=== PATIENT | female | born 1960 | race Two or more races ===

== ENCOUNTER 2024-03-03 14:09 | Emergency (ER) | payer MEDICAID, OTHER ==
[~2024-03-03] VITALS: Ht 152.4 cm; Wt 83.6 kg
[2024-03-03] MEDS ORDERED: HYDR-3682 PO (15:30)
[2024-03-03] MEDS ORDERED: TRAZ-181 PO (15:30)
[2024-03-03 16:01] VITALS: BP 110/80; PULSE 84; RESP 16; TEMP 97.8; O2SAT 97
== END 2024-03-03 16:06 | disposition home or self-care (01) ==
LOC: ER 14:21
DX: F43.22 Adjustment disorder with anxiety (principal)

== ENCOUNTER 2024-03-17 18:30 | Emergency (ER) | payer MEDICAID ==
[~2024-03-17] VITALS: Ht 152.4 cm; Wt 87.1 kg
[~2024-03-17 18:30] MED LIST: HYDR-3682 PO; TRAZ-181 PO
[2024-03-17] MEDS: LORazepam 0.5 MG TAB PO ONE (19:00)
[2024-03-17] MEDS ORDERED: ESCI1TAB36 PO (19:12)
[2024-03-17 20:07] VITALS: BP 144/89; PULSE 74; RESP 14; TEMP 98.3
[2024-03-17] MEDS: ACETAMINOPHEN 325 MG TAB PO ONE (20:32)
[2024-03-17 20:40] VITALS: O2SAT 98
== END 2024-03-17 20:49 | disposition home or self-care (01) ==
LOC: ER 18:30
DX: F41.1 Generalized anxiety disorder (principal); G44.309 Post-traumatic headache, unspecified, not intractable

== ENCOUNTER 2024-03-31 10:19 | Emergency (ER) | payer MEDICAID ==
[~2024-03-31] VITALS: Ht 152.4 cm; Wt 85.0 kg
[~2024-03-31 10:19] MED LIST changes: +ESCI1TAB36 PO
--- NOTE | 2024-03-31 10:37 | ED.PDOC ---
Eye-HPI HPI Comments HPI: Poor Historian. 64-year-old female presents to emergency department for evaluation of right ear discomfort stating that she has her Q-tip cotton piece retained in her ear after she cleaned her ear last night. Patient denies any other acute symptoms. Past Medcial History: Past Surgical History: REVIEW OF SYSTEMS: CONSTITUTIONAL: Denies acute: fever, diaphoresis, chills, generalized weakness. HEAD: Denies acute: headache, photophobia Eyes: Denies acute: Double vision, vision loss, eye pain, eye discharge. EARS: Denies acute: tinnitus, hearing loss, ear discharge, THROAT: Denies acute: sore throat, swelling, difficulty swallowing , pain with swallowing, change in voice. NECK: Denies acute: neck pain, neck swelling, stiff neck. HEART: Denies acute : chest pain, palpitations, LUNGS: Denies acute: SOB, wheezing, cough, hemoptysis ABDOMEN: Denies acute: abdominal pain, Nausea, Vomiting, diarrhea, melena , hematemesis, hematochezia SKIN: Denies acute: rash, redness, lesions, itchiness. EXTREMITIES: Denies acute: calf pain, numbness, tingling, weakness, denies pain in extremity. Denies acute: Low back pain. Neuro: Denies acute: focal neurological deficit, motor or sensory focal neurological deficit, tremors, seizure like activity, confusion, dizziness, change in mental status, loss of bowel or bladder function, cauda equina like symptoms. : Denies acute: dysuria, hematuria, flank pain, increase in urinary frequency. PSYCH: Denies acute: hallucination, suicidal ideation, homicidal ideation. FEMALE: Denies acute: abnormal vaginal bleeding, foul odor, unusual discharge. PHYSICAL EXAM: General: no acute distress, awake and alert. Head: normocephalic, atraumatic. Neck: supple, trachea is midline, no swelling. Throat: Normal phonation. Eyes:, no erythema, no purulent discharge, no proptosis, no icterus. Heart: regular rate, regular rhythm, no significant murmur appreciated. Lungs: no apparent respiratory distress, Able to speak in full sentences. No wheezing, no rhonchi, no crackles. No stridors Clear to auscultation bilaterally. Abdomen: non tender to palpation, non distended, soft, no guarding, no rebound, + bowel sounds. Neuro: Awake, Alert, oriented to name, self, situation, follows commands GCS=15. Speech is normal. Skin: no petechia, no purpura, no cyanosis, non-pale, not jaundice. Lower extremities: --no - Pitting edema no deformity, no focal swelling, no calf TTP. Makes eye contact. moves all four extremities. Face: no apparent facial droop. no CVA tenderness to percussion bilaterally. Ambulating in the ED independently. Ears: Normal appearing TM b/l, no presence of foreign bodies. Is noted minimal right ear canal irritation Stroke: finger to nose cerebellar testing is intact. No pronator drift. Symmetrical director athletic muscle strength b/l PERRLA, EOM-I Chief Complaint: Earache Time Seen by MD: 10:25 Primary Care Provider: NONE Reviewed Notes: Allergies Allergies: Coded Allergies: NO KNOWN ALLERGIES (Unverified , 03/03/24) Home Meds Active Scripts Escitalopram Oxalate (ESCITALOPRAM OXALATE) 10 Mg Tab, 1 TAB PO DAILY, #30 TAB 3 Refills Prov:DEBBIE CRANE MD 03/17/24 Trazodone HCl (Trazodone Hydrochloride) 50 Mg Tab, 50 MG PO QHSP PRN for 30 Days, #30 TAB 0 Refills Prov:ASIA GUADALUPE NP 03/03/24 Hydroxyzine Hcl (Hydroxyzine Hcl) 25 Mg Tab, 1 TAB PO TIDPRN PRN for 14 Days, #42 TAB 0 Refills Prov:ASIA GUADALUPE NP 03/03/24 Information Source: Patient Mode of Arrival: Ambulatory Past Medical History PAST MEDICAL HISTORY: Denies Surgical History: 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 Was a procedure done?: No EENT DIFF Eye: Other Ear: Abrasion, Cerumen Impaction, Foreign Body, Otitis Externa, Barotrauma, Otitis Media, Perforation, Dental, Pharyngitis, Sinusitis, TMJ Syndrome X-Ray, Labs, Meds, VS Vital Signs Date Time Temp Pulse Resp B/P (MAP) Pulse Ox O2 Delivery O2 Flow Rate FiO2 03/31/24 10:28 98.1 82 18 136/86 (103) 97 Time of 1ST Reevaluation: 10:58 Reevaluation 1ST: Unchanged Patient Education/Counseling: Diagnosis, Treatment Family Education/Counseling: No Family Present Comments Patient presented with the above HPI.----ear pain--workup was initiated. patient was found with the above mentioned diagnosis. Patient ED course and VS have been stabilized. Patient has been reassessed in the ED and remained in a stable condition. Pertinent incidental findings were discussed with the patient and/or family. Patient/family voices understanding and is agreeable with plan. Patient has been observed in the ED adequate length of time to insure improvement/stability. patient was discharged home in a stable condition since there was no foreign body seen on otoscope exam of bilateral ears. Departure 1 Departure Time of Disposition: 10:36 Impression: Primary Impression: Ear canal abrasion Disposition: HOME / SELF CARE / HOMELESS Condition: Stable Additional Instructions: Additional discharge instructions: You MUST follow-up with your primary care/family doctor in 1 to 2 days. If you are unable to see your primary care/family doctor, please return to our emergency room for re-assessment and re-evaluation in 1 to 2 days. Return to the emergency room here in our facility or to the nearest ER [facility] if your symptoms change or worsen. CONSULTATIONS: you MUST Follow-up for consultation as soon as possible with: ENT doctor in 1-2 days. Please call for appointment. You MUST call the consultants office yourself to make an appointment. You may need to arrange that through your insurance and/or your primary/family doctor. If you are unable to see the security system sales consultant in 1 to 2 days, you must return to our emergency room (or any other ER of your choice) for re-assessment and re- evaluation. Adequate fluid hydration. Discharged With: Self Critical Care Note Critical Care Time?: No RILEY VALLEJO DO Mar 31, 2024 10:36
[2024-03-31 10:59] VITALS: BP 127/78; PULSE 72; RESP 17; TEMP 98.3; O2SAT 97
== END 2024-03-31 11:01 | disposition home or self-care (01) ==
LOC: ER 10:19
DX: S00.411A Abrasion of right ear, initial encounter (principal); Z79.899 Other long term (current) drug therapy; W44.F9XA Other object of natural or organic material, entering into or through a natural orifice, initial encounter; Y93.89 Activity, other specified; Y92.89 Other specified places as the place of occurrence of the external cause; Y99.8 Other external cause status